=== PATIENT | female | born 1995 | race Caucasian/White ===

== ENCOUNTER 2020-05-15 07:55 | Day surgery (SDC) | payer MEDICAID, SELFPAY ==
[2020-05-06 09:15] VITALS: BMI 29.0
[2020-05-06 09:40] LABS: Add Urine Microscopic? NO
[2020-05-06 09:51] LABS: Basophils # 0.1 10^3/uL (0.0-0.1); Basophils % 1.2 %; Eosinophils # 0.2 10^3/uL (0.0-0.8); Eosinophils % 3.2 %; Hematocrit 44.7 % (37.0-47.0); Hemoglobin 14.1 g/dL (11.5-15.3); Lymphocytes # 2.5 10^3/uL (0.8-4.8); Lymphocytes % 37.4 %; Mean Corpuscular HGB Conc 31.5 g/dL (30.0-36.0); Mean Corpuscular Hemoglobin 28.2 pg (28.0-34.0); Mean Corpuscular Volume 89.4 fL (81-99); Mean Platelet Volume 11.8 fL (7.4-10.4); Monocytes # 0.4 10^3/uL (0.2-0.9); Monocytes % 6.3 %; Neutrophils # 3.39 10^3/uL (1.8-7.7); Neutrophils % 51.7 %; Nucleated Red Blood Cells % 0 %; Platelet Count 222 10^3/cmm (130-400); Red Cell Distribution Width 12.9 % (12.1-15.1); White Blood Count 6.6 10^3/uL (4.0-10.0)
--- NOTE | 2020-05-06 09:59 | ANES.PREANE2 ---
Pre-Anesthetic Assessment Pre-Anesthetic Assessment: Height/Weight: Height 1.68 m Weight 81.647 kg Preop Diagnosis: Desire permanent sterilization Proposed Procedure: Operation Date: 05/15/20 11:35 Proposed Procedures jemma Villanueva,Removal of Tubes Sterilization 33061 Z30.9(Not Applicable) - Dejuan Gutiérrez MD Was Beta Abilio taken within 24 hours: N/A Social: Social History: Tobacco and No alcohol Exam: Pre-Anes Outpt Exam: alert, oriented x 3, clear to auscultation bilaterally and regular rate & rhythm Airway: Submandibular: WNL Cervical ROM: WNL MP: 2 Dentition: Full History/ROS: No significant complaints Pulmonary: Pulmonary: None reported CV/HEM: CV/HEM: None reported : : None reported Hepatic: Hepatic: None reported GI: GI: None reported Metabolic: Metabolic: None reported Musc/skel: Musc/skel: None reported Neuropsych: Neuropsych: None reported Anesthetic Plan: ASA status: 2 Anesthesia: General Risk of > 500 ml blood loss (7ml/kg in children): No PFSH Anesthesia PFSH: Medical History Request for sterilization Family History Grandfather Diabetes paternal Hypertension paternal Denies family history of CAD (coronary artery disease) Clotting disorder Hyperlipidemia Anesthesia complication Bleeding disorder Stroke Social History (Updated 05/06/20 @ 07:59 by Janki Peterson RN) Smoking and tobacco status: never smoked Alcohol intake: never Substance/Drug Use: never Female Reproductive History: Date of last menstrual period: 05/06/20 Data Anesthesia CBC & Chem 7: 05/06/20 09:29 05/06/20 09:29 Other Labs: Laboratory Results - last 48 hr 05/06/20 09:29 WBC 6.6 RBC 5.00 Hgb 14.1 Hct 44.7 MCV 89.4 MCH 28.2 MCHC 31.5 RDW 12.9 Plt Count 222 MPV 11.8 H Neut % (Auto) 51.7 Lymph % (Auto) 37.4 Towner % (Auto) 6.3 Eos % (Auto) 3.2 Baso % (Auto) 1.2 Neut # (Auto) 3.39 Lymph # (Auto) 2.5 Towner # (Auto) 0.4 Eos # (Auto) 0.2 Baso # (Auto) 0.1 Nucleated RBC % (auto) 0 Nucleated RBCs # 0.0 Cardiac Studies: No Data to Display
[2020-05-06 10:01] LABS: Bilirubin Urine Neg (NEGATIVE); Blood Urine Neg (Negative); Glucose Urine UA Norm (Normal); Ketones Urine Negative (Negative); Leukocyte Esterase Urine Negative (Negative); Nitrate Urine Negative (Negative); OR HCG Qualitative Urine Negative (Negative); Protein Urine Neg (Negative); Urine Appearance Clear (CLEAR); Urine Color Yellow (Yellow); Urobilinogen Urine Norm (Negative); pH Urine 5 (5-7)
[2020-05-06 10:13] LABS: Anion Gap 11.1 (5-19); Blood Urea Nitrogen 14 mg/dL (6-20); Calcium 9.4 mg/dL (8.5-10.5); Carbon Dioxide 27 mmol/L (22-29); Chloride 107 mmol/L (98-107); Glomerular Filtration Rate 123.9 mL/min (90-130); Glucose 95 mg/dL (65-115); Osmolality Calculated 288 mOsm/kg (285-295); Potassium 4.1 mmol/L (3.5-5.1); Sodium 141 mmol/L (136-145)
[2020-05-15] VITALS (8 sets, daily range): BP systolic 108–135; BP diastolic 65–100; PULSE 55–82; RESP 16–23; TEMP 36.1–36.6; O2SAT 98–100
--- NOTE | 2020-05-15 08:08 | W.PM.OPSUD ---
Surgery/Procedure H&P Update DATE OF PROCEDURE: May 15, 2020 DATE H&P PERFORMED: 05/13/20 H&P UPDATE INFORMATION: I have reviewed H&P completed within last 30 days, I have examined patient prior to procedure and No changes to prior documentation PREOP DIAGNOSIS: Desire permanent sterilization PLANNED PROCEDURE: Operation Date: 05/15/20 09:25 Proposed Procedures p Lap Fulg,Removal of Tubes Sterilization 68624 Z30.9(Not Applicable) - Dejuan Gutiérrez MD
[2020-05-15] MEDS: scopolamine 1.5 Patch 1 PATCH TRANSDERMA (08:22)
[2020-05-15] MEDS: sodium chloride 0.9% 1,000 ML 30 ML IV (08:23)
--- NOTE | 2020-05-15 09:05 | P.ANESUD_ITS ---
Pre-Anesthetic Update Pre-Anesthetic Assessment: Date of Surgery/Procedure: 05/15/20 Preop Gertrudis gnosis: Desire permanent sterilization Proposed Procedure: Operation Date: 05/15/20 09:25 Proposed Procedures p Glenny Villanueva,Removal of Tubes Sterilization 34619 Z30.9(Not Applicable) - Dejuan Gutiérrez MD Any changes to Pre-Anesthetic Assessment?: No Last Intake: Intake Last Liquid Date 05/14/20 Last Liquid Time 19:00 Last Solid Date 05/14/20 Last Solid Time 19:00 Vitals: Temperature 96.9 F L 05/15/20 07:59 Temperature Source Temporal Artery S can 05/15/20 07:59 Pulse Rate 75 05/15/20 07:59 Respiratory Rate 16 05/15/20 07:59 Blood Pressure 135/100 05/15/20 07:59 Blood Pressure Marie n 111 05/15/20 07:59 Pulse Oximetry 98 05/15/20 07:59 Oxygen Delivery Me thod 05/15/20 07:59 Exam: Pre-Anes Outpt Exam: alert, oriented x 3, clear to auscultation bilate rally and regular rate & rhythm Cardiac Studies: No Data to Display
[2020-05-15 11:47] LABS: OR HCG Qualitative Urine Negative (Negative)
--- NOTE | 2020-05-15 12:07 | ANES.PREANE2 ---
Pre-Anesthetic Assessment Pre-Anesthetic Assessment: Height/Weight: Height 1.68 m Weight 81.647 kg Temp Pulse Resp BP Pulse Ox 96.9 F L 75 16 135/100 98 05/15/20 07:59 05/15/20 07:59 05/15/20 07:59 05/15/20 07:59 05/15/20 07:59 Preop Diagnosis: Desire permanent sterilization Proposed Procedure: Operation Date: 05/15/20 09:25 Proposed Procedures p Lap Fulg,Removal of Tubes Sterilization 01709 Z30.9(Not Applicable) - Dejuan Gutiérrez MD Was Beta Abilio taken within 24 hours: N/A Last intake: Intake Last Liquid Date 05/14/20 Last Liquid Time 19:00 Last Solid Date 05/14/20 Last Solid Time 19:00 Social: Social History: No alcohol and No tobacco Exam: Pre-Anes Outpt Exam: alert and oriented x 3 Pulmonary: Pulmonary: None reported CV/HEM: CV/HEM: Anemia : : None reported Hepatic: Hepatic: None reported GI: GI: None reported Metabolic: Metabolic: None reported Musc/skel: Musc/skel: None reported Neuropsych: Neuropsych: None reported Anesthetic Plan: ASA status: 2 Anesthesia: Anesthesia Evaluation and General Risk of > 500 ml blood loss (7ml/kg in children): No Meds/Allergies Current Medications: Current Medications Generic Name Dose Route Start Last Admin Trade Name Freq PRN Reason Stop Dose Admin Sodium Chloride 1,000 mls @ 30 ml s/hr 05/15/20 08:00 05/15/20 08:23 Sodium Chloride 0.9% IV 05/16/20 07:59 30 mls/hr .Q24H DE Administration PFSH Anesthesia PFSH: Medical History Request for sterilization Family History Grandfather Diabetes paternal Hypertension paternal Denies family history of CAD (coronary artery disease) Clotting disorder Hyperlipidemia Anesthesia complication Bleeding disorder Stroke Social History (Updated 05/06/20 @ 07:59 by Janki Peterson RN) Smoking and tobacco status: current some day smoker cigarettes Years cigarettes smoked: 1 Alcohol intake: never Female Reproductive History: Date of last menstrual period: 05/06/20 Data Anesthesia CBC & Chem 7: 05/06/20 09:29 05/06/20 09:29 Other Labs: Laboratory Results - last 48 hr 05/15/20 05/15/20 08:00 08:16 Urine HCG, Qual Negative Blood Type O Positive Rho(D) Type Positive Antibody Screen Negative Cardiac Studies: No Data to Display
--- NOTE | 2020-05-15 12:09 | ANES.PREANE2 ---
Pre-Anesthetic Assessment Pre-Anesthetic Assessment: Height/Weight: Height 1.68 m Weight 81.647 kg Temp Pulse Resp BP Pulse Ox 96.9 F L 75 16 135/100 98 05/15/20 07:59 05/15/20 07:59 05/15/20 07:59 05/15/20 07:59 05/15/20 07:59 Preop Diagnosis: Desire permanent sterilization Proposed Procedure: Operation Date: 05/15/20 09:25 Proposed Procedures p Lap Fulg,Removal of Tubes Sterilization 71615 Z30.9(Not Applicable) - Dejuan Gutiérrez MD Was Beta Abilio taken within 24 hours: N/A Last intake: Intake Last Liquid Date 05/14/20 Last Liquid Time 19:00 Last Solid Date 05/14/20 Last Solid Time 19:00 Social: Social History: No alcohol and No tobacco Exam: Pre-Anes Outpt Exam: alert, oriented x 3, clear to auscultation bilaterally and regular rate & rhythm Airway: Submandibular: WNL Cervical ROM: WNL MP: 1 Pulmonary: Pulmonary: None reported CV/HEM: CV/HEM: Anemia : : None reported Hepatic: Hepatic: None reported GI: GI: None reported Metabolic: Metabolic: None reported Musc/skel: Musc/skel: None reported Neuropsych: Neuropsych: None reported Anesthetic Plan: ASA status: 2 Anesthesia: General Meds/Allergies Current Medications: Current Medications Generic Name Dose Route Start Last Admin Trade Name Freq PRN Reason Stop Dose Admin Sodium Chloride 1,000 mls @ 30 ml s/hr 05/15/20 08:00 05/15/20 08:23 Sodium Chloride 0.9% IV 05/16/20 07:59 30 mls/hr .Q24H DE Administration PFSH Anesthesia PFSH: Medical History Request for sterilization Family History Grandfather Diabetes paternal Hypertension paternal Denies family history of CAD (coronary artery disease) Clotting disorder Hyperlipidemia Anesthesia complication Bleeding disorder Stroke Social History (Updated 05/06/20 @ 07:59 by Janki Peterson RN) Smoking and tobacco status: current some day smoker cigarettes Years cigarettes smoked: 1 Alcohol intake: never Female Reproductive History: Date of last menstrual period: 05/06/20 Data Anesthesia CBC & Chem 7: 05/06/20 09:29 05/06/20 09:29 Other Labs: Laboratory Results - last 48 hr 05/15/20 05/15/20 08:00 08:16 Urine HCG, Qual Negative Blood Type O Positive Rho(D) Type Positive Antibody Screen Negative Cardiac Studies: No Data to Display
--- NOTE | 2020-05-15 13:15 | PM.OP ---
Operative Report Date of procedure: May 15, 2020 Pre-op Diagnosis: Desire permanent sterilization Post-op diagnosis: same Specimens removed/disposition: Left and right fallopian tubes Surgeon: Dejuan Gutiérrez Anesthesia: General Estimated blood loss (mL): 5 IV fluids (mL): 1,300 Urine output (mL): 50 Complications: none Condition: stable Disposition: PACU Brief History: 25-year-old female desire permanent sterilization Procedure: After informed consent, the patient was taken to the operating room where general anesthesia was administered. She was placed in the dorsal lithotomy position and prepped and draped in sterile fashion. Pre-Procedure Time-Out verifying the correct patient identity, correct procedure verified with consent, correct site and side, correct patient position, availability of correct implants and any special equipment or requirements was performed and acknowledge by the OR team. The patient was examined under anesthesia and found to have a normal uterus with normal adnexa. A weighted speculum was placed in the vagina, and the anterior lip of cervix was grasped with the single toothed tenaculum. A uterine manipulator was advanced into the endocervical canal and uterus. The tenaculum was removed after uterine manipulator was secured. The speculum was removed from the vagina. An intraumbilical incision was made with a scalpel. While tenting up on the abdomen, a Verres needle was admitted into the intra-abdominal cavity. A saline drop test was performed and noted to be within normal limits. Pneumoperitoneum was attained with 4 liters of carbon dioxide. The Verres needle was removed. A 5 mm Opitc view trocar and sleeve were admitted into the abdomen and laparoscopic confirmation of location was achieved. A second incision was made 3 cm above the symphysis pubis, and a 5 mm trocar sleeves were admitted into the abdomen under direct laparoscopic visualization without complication. A survey revealed normal abdominal anatomy with the exception of string adhesion to the right lower anterior abdominal wall. A 5 mm blunt probe was advanced through the second trocar sleeve, and light manipulation of ovaries and uterus to assess the posterior aspects was performed. The pelvic survey shows normal uterus, left and right adnexa. The left ovary was noted with a follicular cyst. The string adhesion was fulgurated and transected with good hemostasis with the Voyant. The patient was placed into Trendelenburg position. The fallopian tubes were inspected bilaterally and the fimbriated ends of the fallopian tubes were visualized bilaterally. Attention was then directed to the right side. The fallopian tube and mesosalpinx were grasped and the underlying mesosalpinx was cauterized and cut using the Voyant device. Serial cauterization and cutting was used to separate the fallopian tube from the underlying mesosalpinx until it could be amputated cutting it approximated 2 cm from the cornua. Attention was then turned to the contralateral fallopian tube, which was removed in similar fashion. Both specimens were removed through the trocar and sent to pathology. The instruments were removed. The suprapubic trocar port was removed under direct visualization insuring good hemostasis. The carbon dioxide was allowed to escape from the abdomen. The intraumbilical trocar sleeve was withdrawn under visualization with laparoscope in the sleeve to insure hemostasis. The skin incisions were closed with 3-O Monocryl subcuticular stich and adhesive dressing. The instruments were removed from the vagina, and excellent hemostasis was noted. The patient tolerated the procedure well, and sponge, lap and needle count were correct times two. The patient was taken to the recovery room in good condition.
--- NOTE | 2020-05-15 13:31 | SUR.PHASEI ---
1323 PATIENT TO PACU FROM OR. RR EVEN AND UNLABORED. SPO2 100% ON SIMPLE MASK AT 8L. 2 INCISIONS TO ABDOMEN, CDI.
--- NOTE | 2020-05-15 13:51 | SUR.PHASEI ---
1347 PATIENT TO OPS. RR EVEN AND UNLABORED. TOLERATING ICE CHIPS, INCISIONS TO ABDOMEN, CDI.
[2020-05-15] MEDS: HYDROcodone-acetaminophen 5-325 mg Tablet 1 TAB PO (14:15)
== END 2020-05-15 14:30 | disposition home or self-care (01) ==
PROVIDERS: Visit Provider Obstetrics & Gynecology
PROC: (CPT 58661; 2020-05-15 09:25)
DX: Z30.2 Encounter for sterilization (principal); K66.0 Peritoneal adhesions (postprocedural) (postinfection); N83.02 Follicular cyst of left ovary; F17.210 Nicotine dependence, cigarettes, uncomplicated
CPT/HCPCS: 58661; 12345; 36415; 80048; 81003; 81025; 84703; 85025; 86850; 86900; 88302; J0690; J2250; J3010; J3490; J7030